=== PATIENT | male | born 1975 | race Caucasian/White ===

== ENCOUNTER 2017-10-22 10:10 | Emergency (ER) | payer SELFPAY ==
[2017-10-22 10:19] VITALS: BP 132/88; PULSE 114; RESP 20; TEMP 36.8; O2SAT 98; BMI 23.5
== END 2017-10-22 11:04 | disposition left against medical advice (07) ==
PROVIDERS: Emergency Provider Emergency Medicine
DX: R68.89 Other general symptoms and signs (principal)
CPT/HCPCS: 99281; 99282